=== PATIENT | male | born 1935 | race Caucasian/White ===

== ENCOUNTER 2017-07-04 17:51 | Emergency (ER) | payer OTHER ==
[~2017-07-04] VITALS: Ht 180.3 cm; Wt 75.0 kg
[2017-07-04] VITALS (8 sets, daily range): BP systolic 135–170; BP diastolic 62–72; PULSE 59–76; RESP 15–18; TEMP 98.3–98.9; O2SAT 99–100
[~2017-07-04 17:51] MED LIST: ASPI1TAB7 PO; ATOR20TA PO; CEPH500 PO; CHOL1CAP24 PO; CLIN1CAP6 PO; FLOR250C PO; GLYB1TAB51 PO; METF500 PO; METO25 PO; RAMI2.5C29 PO; RIVA9.5T TD; SILV400T TOP; TAMS0.4C67 PO; TYLE500T PO
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
--- NOTE | 2017-07-04 20:15 | RADRPT ---
EXAM DATE/TIME: 07/04/2017 19:45 [facility] COMPARISON: CHEST SINGLE AP, August 15, 2015, 12:39. INDICATIONS : Shortness of breath. MEDICAL HISTORY : Myocardial infarction. Prior PE. SURGICAL HISTORY : CABG. ENCOUNTER: Initial ACUITY: 1 day PAIN SCORE: 0/10 LOCATION: Bilateral chest FINDINGS: Median sternotomy wires are noted status post cardiac surgery. The heart is stable. Mild increased interstitial markings are noted consistent with mild pulmonary vascular congestion versus pneumonia. Clinical correlation is recommended. Degenerative changes are noted throughout the thoracic spine. CONCLUSION: Mild increased interstitial markings consistent with mild pulmonary vascular congestion versus pneumo junaid. Clinical correlation is recommended. Yao Gilman MD on July 04, 2017 at 20:11 Board Certified Radiologist. This report was verified electronically.
[2017-07-04] MEDS ORDERED: TAMS5CAP PO (20:21)
[2017-07-04] MEDS ORDERED: DOXY1LIQ3 PO (20:21)
[2017-07-04] MEDS ORDERED: FERR325C PO (20:21)
[2017-07-04] MEDS ORDERED: NOVOLOGP2 SQ (20:21)
[2017-07-04] MEDS ORDERED: GLIP5TAB8 PO (20:21)
[2017-07-04] MEDS ORDERED: MEGE40S PO (20:21)
[2017-07-04] MEDS ORDERED: DOXY1CAP74 PO (20:21)
[2017-07-04] MEDS ORDERED: LANTUS2P SQ (20:21)
[2017-07-04] MEDS ORDERED: PRED10 PO (20:21)
[2017-07-04] MEDS ORDERED: LIPI20TA PO (20:21)
[2017-07-04] MEDS ORDERED: METF500T PO (20:21)
[2017-07-04] MEDS ORDERED: TYLE325T PO (20:21)
[2017-07-04] MEDS ORDERED: CHOL1TAB41 PO (20:21)
[2017-07-04] MEDS ORDERED: POLY17PO3 (20:21)
[2017-07-04] MEDS ORDERED: FLEE5TAB PO (20:21)
[2017-07-04] MEDS ORDERED: RIVA9.5T T-DERMAL (20:21)
[2017-07-04] MEDS ORDERED: CELE20TA PO (20:21)
[2017-07-04] MEDS ORDERED: FLOR250C PO (20:21)
[2017-07-04 20:36] LABS: ANION GAP 7 MEQ/L (5-15); AST (GOT) 11 U/L (15-37); BICARBONATE 22.6 MEQ/L (21.0-32.0); BLOOD UREA NITROGEN 55 MG/DL (7-18); CHLORIDE 106 MEQ/L (98-107); GLOMERULAR FILTRATION RATE 34 ML/MIN (>89); MAGNESIUM 1.5 MG/DL (1.5-2.5); SODIUM (NA) 136 MEQ/L (136-145)
[2017-07-04 20:37] LABS: ALKALINE PHOSPHATASE 48 U/L (45-117); ALT (GPT) 13 U/L (12-78); TOTAL BILIRUBIN ADULT 0.3 MG/DL (0.2-1.0)
[2017-07-04 20:38] LABS: CREATINE KINASE 57 U/L (39-308)
[2017-07-04 21:10] LABS: AUTOMATED NEUTROPHIL # 1.1 TH/MM3 (1.8-7.7); BASOPHIL % 1.2 % (0.0-2.0); EOSINOPHIL % 1.2 % (0.0-4.0); HEMATOCRIT 21.2 % (39.0-51.0); LYMPH % 28.6 % (9.0-44.0); LYMPHOCYTE # 0.5 TH/MM3 (1.0-4.8); MEAN CELL VOLUME 85.3 FL (80.0-100.0); MEAN CORPUSCULAR HEMOGLOBIN 28.6 PG (27.0-34.0); MEAN CORPUSCULAR HGB CONC 33.5 % (32.0-36.0); MONO % 6.2 % (0.0-8.0); NEUT % 62.8 % (16.0-70.0); PLATELET COUNT 37 TH/MM3 (150-450); RED BLOOD COUNT 2.49 MIL/MM3 (4.50-5.90); RED CELL DISTRIBUTION WIDTH 14.9 % (11.6-17.2); WHITE BLOOD COUNT 1.8 TH/MM3 (4.0-11.0)
[2017-07-04 21:12] LABS: HEMO FLAGS AUTO DIFF
[2017-07-04 21:17] LABS: APTT (PATIENT) 19.4 SEC (24.3-30.1); PROTHROMBIN TIME - PATIENT 11.1 SEC (9.8-11.6)
[2017-07-04] MEDS ORDERED: SODIUM CHLOR 0.9% 250 ML INJ 250 ML IV ONE (21:30)
[2017-07-04 21:37] LABS: OVALOCYTES 1+ (NORMAL)
[2017-07-04 21:38] LABS: PLATELET ESTIMATE SMEAR LOW (NORMAL); PLATELET MORPHOLOGY NORMAL (NORMAL); SCAN/DIFF AUTO DIFF CONFIRMED
[2017-07-04] MEDS ORDERED: FUROSEMIDE 20 MG/2 ML VIAL IV PUSH ONE (21:45)
[2017-07-04] MEDS ORDERED: INSULIN HUMAN REGULAR 1,000 UNITS/10 ML VIAL SQ ONE (21:45)
[2017-07-05] VITALS (9 sets, daily range): BP systolic 136–179; BP diastolic 56–80; PULSE 55–83; RESP 16–18; TEMP 98.1–98.4; O2SAT 97–100
--- NOTE | 2017-07-05 16:52 | EKG ---
Date Performed: 07/04/2017 Time Performed: 20:21:40 PTAGE: 81 years EKG: Sinus rhythm WITH 1ST DEGREE AV BLOCK POSSIBLE RIGHT VENTRICULAR CONDUCTION DELAY NONSPECIFIC T-WAVE ABNORMALITY BORDERLINE ECG PREVIOUS TRACING : 08/15/2015 13.03 DOCTOR: Noah Saenz Interpretating Date/Time 07/05/2017 16:51:42
== END 2017-07-05 10:11 ==
LOC: NEPC 17:51
DX: D46.9 Myelodysplastic syndrome, unspecified (principal); N18.9 Chronic kidney disease, unspecified; E11.22 Type 2 diabetes mellitus with diabetic chronic kidney disease; I12.9 Hypertensive chronic kidney disease with stage 1 through stage 4 chronic kidney disease, or unspecified chronic kidney disease; R94.31 Abnormal electrocardiogram [ECG] [EKG]; R06.02 Shortness of breath
CPT/HCPCS: 36430; 71010; 80053; 82550; 83690; 83735; 83880; 84484; 85025; 85610; 85730; 86850; 86900; 86901; 86920; 93005; 96372; 96374; 99285; J1815; J1940; J7050; P9016